=== PATIENT | male | born 1990 | race Caucasian/White ===

== ENCOUNTER 2019-01-27 07:49 | Outpatient (REF) | payer MEDICAID, SELFPAY ==
[2019-01-27 10:53] LABS: HCT 49.2 % (40.0-50.0); Mean Corp. HGB Concentration 32.5 g/dL (32.0-36.0); Mean Corpuscular Hemoglobin 29.9 pg (27.0-33.0); Mean Corpuscular Volume 91.8 fL (80-95); Mean Platelet Volume 10.5 fL (8.0-11.0); Platelet Count 245 x1000/uL (130-400); RBC 5.36 m/cumm (4.50-6.00); RBC Distribution Width 13.6 % (11.8-14.1); White Blood Cell Count 8.34 k/cumm (4.4-10.8)
[2019-01-27 12:14] LABS: Hemoglobin A1C 5.5 % (4.5-6.2)
[2019-01-27 12:45] LABS: Anion Gap 10.9 mmol/L (3-11); BUN 16 mg/dL (7-18); CO2 30.1 mmol/L (21.0-32.0); CREATININE 0.93 mg/dL (0.70-1.30); Calculated LDL 94 mg/dL; Chloride 101 mmol/L (98-107); Cholesterol 169 mg/dL (50-200); Glucose 92 mg/dL (70-100); HDL Cholesterol 60 mg/dL (40-60); Potassium 4.3 mmol/L (3.5-5.1); Sodium 142 mmol/L (136-145); Triglyceride 77 mg/dL (30-150)
[2019-01-28 10:49] LABS: Lyme Ab w Rflx to Lyme Confirm Negative
== END 2019-01-27 08:09 ==
LOC: NCHCN 07:49
PROVIDERS: PCP Nurse Practitioner Family; Visit Provider Nurse Practitioner Family
DX: Z11.8 Encounter for screening for other infectious and parasitic diseases (principal); Z13.1 Encounter for screening for diabetes mellitus; Z13.0 Encounter for screening for diseases of the blood and blood-forming organs and certain disorders involving the immune mechanism; Z13.220 Encounter for screening for lipoid disorders
CPT/HCPCS: 80048; 80061; 83721; 85027; 83036; 86618

== ENCOUNTER 2019-02-14 00:10 | Outpatient (CLI) | payer MEDICAID, SELFPAY ==
--- NOTE | 2019-02-14 08:30 | ETT_ITS ---
*[facility]* *[facility]* [address] [place] [address] Stress Electrocardiography [place] protocol Date of study: 02/14/2019 *PATIENT PRESENTATION* Height: 175.3cm (69in) Blood Pressure: Weight: 65.9kg (145lb) BSA: 1.79m^2 Ordering physician: Alfredo Gutiérrez Impressions: Normal study after maximal exercise. Summary: 1. Stress ECG conclusions: The stress ECG is negative. Treadwell treadmill score: 6. This score predicts a low risk of cardiac events. Indication: R07.89. History: REASON FOR TESTING: PATIENT TESTING TODAY FOR FURTHER RISK STRATIFICATION. PATIENT REPORTS HAVING INTERMITTENT LEFT SIDED SHARP/STABBING CHEST PAIN THAT RADIATES TO LEFT JAW AND NECK OVER THE LAST SIX MONTHS. THIS CHEST PAIN IS ASSOCIATED WITH SOB, NAUSEA, DIAPHORESIS, BLURRY VISION, AND FEELING LIKE HE WANTS TO PASS OUT; CHEST PAIN IS RELIEVED WITH REST; THIS PAIN CAN LAST FROM FIVE TO SIXTY MINUTES. PATIENT DENIES CHEST PAIN UPON ARRIVAL TO TESTING TODAY. SIGNIFICANT PAST MEDICAL HISTORY: PATIENT STATES HIS FATHER HAD A HEART ATTACK AT AGE 26 YEARS. SMOKING STATUS: CURRENT SMOKER FOR 14 YEARS. 2 PPD. Risk factors: Family history of coronary artery disease. Current tobacco use. ALLERGIES: NO KNOWN MEDICATION ALLERGIES. MEDICATIONS: ZANTAC 75 MG DAILY. Protocol: [place] protocol. Baseline ECG: SINUS RHYTHM. HR 84 BPM. Stress protocol: + +---+ + !Stage !HR !BP (mmHg) ! + +---+ + !Baseline supine !84 !130/82 (98) ! + +---+ + !Baseline standing !89 !134/82 (99) ! + +---+ + !Stage I; 1.7mph, 10degrees; 3 min !132!138/80 (99) ! + +---+ + !Stage II; 2.5mph, 12degrees; 3 min !146!144/76 (99) ! + +---+ + !Stage III; 3.4mph, 14degrees; 3 min!167!160/80 (107)! + +---+ + !Peak stress !185! ! + +---+ + !Recovery; 1 min !140!158/50 (86) ! + +---+ + !Recovery; 3 min !99 !158/70 (99) ! + +---+ + !Recovery; 6 min !95 !128/80 (96) ! + +---+ + !Recovery; 9 min !89 !118/82 (94) ! + +---+ + * Stress results: STRESS TEST ENDED IN 9 MINUTES 44 SECONDS DUE TO PATIENT FEELING LIKE HE WANTED TO PASS OUT/LIGHTHEADED. NORMAL HEART RATE AND BLOOD PRESSURE RESPONSE TO EXERCISE. MAX HEART RATE:185. 95 % OF TARGET HEART RATE ACHIEVED. MET'S: 11.34. NO ECTOPY. PATIENT FELT LIKE HE WANTED TO PASS OUT/LIGHTHEADED AT 9 MINUTES 44 SECONDS OF EXERCISE. 5/10 NON RADIATING LEFT SIDED CHEST PAIN AT 1 SECOND RECOVERY. 3/10 NON RADIATING LEFT SIDED CHEST PAIN AT 1 MINUTE 49 SECONDS OF RECOVERY. NONRADIATING LEFT SIDED CHEST PAIN FEELS LIKE NUMBNESS AT 3 MINUTES 22 SECONDS OF RECOVERY. NONRADIATING LEFT SIDED CHEST PAIN COMPLETELY GONE AT 4 MINUTES 27 SECONDS OF RECOV HECTOR, STILL HAS SLIGHT LIGHTHEADEDNESS. PATIENT STATES HE FEELS LIKE HE IS BACK TO BASELINE AT 6 MINUTES 28 SECONDS OF RECOVERY. NO ST SEGMENT CHANGES. MILDLY DIMINISHED FUNCTIONAL CAPACITY. The rate-pressure product for the peak heart rate and blood pressure was 67244ts Hg/min. Stress ECG: The stress ECG is negative. Treadwell treadmill score: 6. This score predicts a low risk of cardiac events. Study data: Abraham Lewis MD supervised and was readily available during the procedure. This study was interpreted by [facility]. Study status: Routine. Consent: The risks, benefits, and alternatives to the procedure were explained to the patient and informed consent was obtained. Procedure: Initial setup. A baseline ECG was recorded. Surface ECG leads and manual cuff blood pressure measurements were monitored. Heart sounds: Normal. Lung sounds: Normal. Treadmill exercise testing was performed using the [place] protocol. Study completion: The patient tolerated the procedure well and was discharged from the lab. Discharge: The patient left the laboratory in stable condition. Birthdate: Patient birthdate: 1990. Sex: Gender: male. Study date: Study date: 02/14/2019. Study time: 00:01 AM. Electronically signed by Abraham Lewis MD 02/14/2019 09:39
== END 2019-02-14 00:30 ==
PROVIDERS: PCP Nurse Practitioner Family; Visit Provider Nurse Practitioner Family
DX: R07.89 Other chest pain (principal); R68.84 Jaw pain
CPT/HCPCS: 93017

== ENCOUNTER 2022-10-24 15:31 | Outpatient (REF) | payer MEDICAID, SELFPAY ==
[2022-10-24 20:53] LABS: Abs Immature Grans 0.02 10^3/uL (0.0-0.06); Absolute Eosinophil Count 0.09 10^3/uL (0.0-0.7); Absolute Monocyte Count 0.48 10^3/uL (0.1-0.8); Absolute Neutrophil Count 6.81 10^3/uL (1.2-6.7); Basophils % 1.1; HCT 48.4 % (40.0-50.0); HGB 15.9 g/dL (13.5-17.5); Immature Grans % 0.2; Lymphocytes % 19.4; MCH 29.6 pg (27.0-33.0); MCHC 32.9 % (32.0-36.0); MCV 90 fL (80-95); MPV 10.7 fL (8.0-11.0); Monocytes % 5.2; Neutrophils % 73.1; Platelet Count 248 10^3/uL (130-400); RBC 5.37 10^6/uL (4.36-5.78); RDW 12.8 % (11.8-14.1); RDW-SD 42.5 fL
[2022-10-24 20:56] LABS: ESR 8 mm/hr (0-15)
[2022-10-24 21:16] LABS: ALT 21 U/L (16-63); AST 21 U/L (15-37); Albumin 5.1 g/dL (3.4-5.0); Alkaline Phosphatase 57 U/L (46-116); Anion Gap 6.5 mmol/L (3-11); BUN 19 mg/dL (7-18); Bilirubin, Total 0.7 mg/dL (0.2-1.0); C-Reactive Protein 0.34 mg/dL (0.0-0.3); CO2 32.5 mmol/L (21.0-32.0); CREATININE 1.2 mg/dL (0.70-1.30); Calcium 9.9 mg/dL (8.5-10.1); Chloride 99 mmol/L (98-107); Estimated GFR 83.43 (mL/min/1.73m2); Glucose 99 mg/dL (74-106); Sodium 138 mmol/L (136-145); TSH (W/Ref FT4) 1.99 uIU/mL (0.36-3.74); Total Protein 8.3 g/dL (6.4-8.2)
[2022-10-25 21:51] LABS: Rheumatoid Factor <8.6 IU/mL (<12.0)
[2022-10-27 10:29] LABS: Lyme Ab w Rflx to Lyme Confirm Negative (Negative)
[2022-10-27 15:10] LABS: ANA Interpretation Negative (Negative)
[2022-10-28 19:11] LABS: Anaplasma phagocytophilum Negative (Negative); B. miyamotoi PCR Negative (Negative); Babesia divergens/MO-1 Negative (Negative); Babesia duncani Negative (Negative); Babesia microti Negative (Negative); Ehrlichia chaffeensis Negative (Negative); Ehrlichia ewingii/canis Negative (Negative); Ehrlichia muris eauclairensis Negative (Negative)
== END 2022-10-24 15:32 | disposition home or self-care (01) ==
LOC: LBN 15:31
PROVIDERS: Visit Provider Physician Assistant Medical
DX: R42 Dizziness and giddiness (principal); R79.89 Other specified abnormal findings of blood chemistry; R79.82 Elevated C-reactive protein (CRP)
CPT/HCPCS: 80053; 85652; 87798; 84443; 85025; 86038; 86140; 86431; 86618

== ENCOUNTER 2022-10-27 10:18 | Outpatient (REF) | payer MEDICAID, SELFPAY | END 2022-10-27 10:19 | disposition home or self-care (01) | LOC: LBN 10:18 | PROVIDERS: Visit Provider Physician Assistant Medical | DX: R42 Dizziness and giddiness (principal); R19.5 Other fecal abnormalities | CPT/HCPCS: 87177 ==

== ENCOUNTER 2024-01-25 19:49 | Outpatient (CLI) | payer MEDICAID, SELFPAY ==
[2024-01-26 18:56] LABS: HBs Antibody, Quant 281.5 mIU/mL (See Note); Hepatitis B Surface Ab Positive (See Note)
[2024-01-26 19:37] LABS: HIV-1/2 Ag & Ab Screen Negative (Negative)
[2024-01-26 19:38] LABS: Hepatitis C Ab w Rflx HCV PCR Negative (Negative)
[2024-01-27 12:08] LABS: TB Interpretation Negative (Negative); TB1 Ag minus Nil 0.01 IU/ml
== END 2024-01-25 19:50 | disposition home or self-care (01) ==
LOC: LBO 19:50
PROVIDERS: Visit Provider Nurse Practitioner Family
DX: Z11.59 Encounter for screening for other viral diseases (principal); Z11.7 Encounter for testing for latent tuberculosis infection
CPT/HCPCS: 36415; 86706; 86803; 87389; 86480

== ENCOUNTER 2024-02-15 11:18 | Emergency (ER) | payer MEDICAID, SELFPAY ==
[2024-02-15] VITALS (55 sets, daily range): BP systolic 95–145; BP diastolic 47–99; PULSE 86–125; RESP 11–33; TEMP 36.6; O2SAT 97–100
--- NOTE | 2024-02-15 11:15 | RT.EKG_ITS ---
APPROVED REPORT Exam: Resting ECG Reason for Exam: overdose Patient Location: E HR:112 bpm ECG Measurements Heart Rate 112 AXIS AR 116 P 84 QRSd 77 QRS 86 QT 324 T -29 QTc 443 Conclusion Sinus tachycardia...rate> 99
[2024-02-15 11:49] LABS: Abs Immature Grans 0.06 10^3/uL (0.0-0.06); Absolute Monocyte Count 0.73 10^3/uL (0.1-0.8); Basophils % 0.6 %; Eosinophils % 0.8 %; HCT 52.5 % (40.0-50.0); HGB 17.2 g/dL (13.5-17.5); Immature Grans % 0.3 %; Lymphocytes % 12.4 %; MCH 29.5 pg (27.0-33.0); MCHC 32.8 % (32.0-36.0); MCV 90 fL (80-95); MPV 9.3 fL (8.0-11.0); Monocytes % 4.2 %; Neutrophils % 81.7 %; Platelet Count 304 10^3/uL (130-400); RBC 5.83 10^6/uL (4.36-5.78); RDW-SD 46.3 fL; WBC 17.31 10^3/uL (4.4-10.8)
[2024-02-15 11:50] LABS: Absolute Eosinophil Count 0.14 10^3/uL (0.0-0.7); Absolute Lymphocyte Count 2.15 10^3/uL (1.2-3.4); Absolute Neutrophil Count 14.14 10^3/uL (1.2-6.7)
--- NOTE | 2024-02-15 11:56 | W.ED.GENAD ---
Discharge Plan Discharge Details Chief Complaint: PsychEval Primary Care Provider: Unknown,Unknown ED Provider: Susannah Stephens Home Meds and New Rx's Prescriptions: No Action lorazepam [Ativan] 0.5 mg tablet 0.5 mg PO Q6H PRN hydroxyzine HCl 25 mg tablet 25 mg PO TID PRN HPI General Mode of arrival: ambulatory. Date/Time Provider Initiated Documentation: 02/15/24 11:30. Limitations to Documentation: no limitations. Information obtained by: patient, RN notes reviewed and old records reviewed. HPI Narrative: 33-year-old male presents to the ER complaining of suicidal attempt by overdose. Patient reports over the last few days he has been taking multiple tablets of Benadryl and hydroxyzine along with lorazepam. Patient reports at least 5 tablets or more of Benadryl daily. He also reports some nausea vomiting which began today and some abdominal irritation. He is alert and oriented nonirritated or agitated upon initial presentation he is tachycardic with a rate of 116. He reports he has not eaten in many days. He is stating that he is suicidal and wants to kill himself. He also endorses alcohol. Denies any other substances he reports that he ran out of weed. Denies any recent falls or any other associated symptoms. Related Data Home Medications ?Medication ?Instructions ?Recorded ?Confirmed hydroxyzine HCl 25 mg tablet 25 mg PO TID PRN 02/15/24 02/15/24 lorazepam 0.5 mg tablet (Ativan) 0.5 mg PO Q6H PRN 02/15/24 02/15/24 Allergies Allergy/AdvReac Type Severity Reaction Status Date / Time No Known Allergies Allergy Unverified 02/15/24 11:54 General Stated Complaint: PsychEval STEPHANY: 2 Review of Systems All systems reviewed & are unremarkable except as noted in HPI and below Gastrointestinal Gastrointestinal: Reports abdominal pain, Reports nausea and Reports vomiting Psychiatric Psychiatric: Reports depression, Reports hopelessness and Reports suicidal ideation Exam Narrative Exam Narrative: Constitutional: Alert and oriented x3. Appears stated age. Normal body habitus. Head: Normocephalic, no trauma. Eyes: Pupils PERRL, Red reflex noted, EOM's intact. Eyelids symmetrical without lesions, discharge, or swelling. ENT: Bilateral TM's WNL, External ear normal to inspection, no mastoid TTP, swelling, or erythema, Nasal turbinates WNL, no nasal discharge. Normal dentition, Posterior pharynx WNL, no exudate. Chest: Sinus tachycardia, rate of 118, normal S1, S2, distal pulses intact. Resp: Lungs clear to auscultation bilaterally, no wheezes, rales, or rhonchi. Abdomen: Soft, non-distended, Normoactive bowel sounds all 4 quads. Musculoskeletal: Normal gait, Moves all 4 extremities without difficulty. Skin: No suspicious rashes or lesions. Capillary refill less than 2 sec. Neurologic: Cranial nerves II-XII intact. Alert and oriented x 3. Motor: No deficits noted. Sensory: Intact bilaterally all 4 extremities. Hematologic/Lymphatic: No ecchymosis, no lymphadenopathy. Course Vital Signs Vital signs: Vital Signs Temperature 36.6 C 02/15/24 11:22 Pulse 116 H 02/15/24 11:22 Respiratory Rate 16 02/15/24 11:22 Blood Pressure 98/75 L 02/15/24 11:22 Pulse Oximetry 100 02/15/24 11:22 Temperature 36.6 C 02/15/24 11:22 Pulse 116 H 02/15/24 11:22 Respiratory Rate 16 02/15/24 11:22 Respiratory Effort Normal, Non-Labored 02/15/24 11:39 Blood Pressure 98/75 L 02/15/24 11:22 Pulse Oximetry 100 02/15/24 11:22 Lab/Test Results Lab/Test Results: Laboratory Tests Range/Units 02/15/24 11:35 WBC (4.4-10.8) 10^3/uL 17.31 H RBC (4.36-5.78) 10^6/uL 5.83 H Hgb (13.5-17.5) g/dL 17.2 Hct (40.0-50.0) % 52.5 H MCV (80-95) fL 90 MCH (27.0-33.0) pg 29.5 MCHC (32.0-36.0) % 32.8 RDW (11.8-14.1) % 14.0 Plt Count (130-400) 10^3/uL 304 MPV (8.0-11.0) fL 9.3 Immature Gran % % 0.3 Neutrophils % % 81.7 Lymphocytes % % 12.4 Monocytes % % 4.2 Eosinophils % % 0.8 Basophils % % 0.6 Nucleated RBC % (0.0-0.3) % 0.0 Absolute Neutrophils (1.2-6.7) 10^3/uL 14.14 H Absolute Lymphocytes (1.2-3.4) 10^3/uL 2.15 Absolute Monocytes (0.1-0.8) 10^3/uL 0.73 Absolute Eosinophils (0.0-0.7) 10^3/uL 0.14 Absolute Basophils (0.0-0.2) 10^3/uL 0.10 Medical Decision Making 33-year-old male presents to the ER complaining of suicidal attempt by overdose. Patient reports over the last few days he has been taking multiple tablets of Benadryl and hydroxyzine along with lorazepam. Patient reports at least 5 tablets or more of Benadryl daily. He also reports some nausea vomiting which began today and some abdominal irritation. He is alert and oriented nonirritated or agitated upon initial presentation he is tachycardic with a rate of 116. He reports he has not eaten in many days. He is stating that he is suicidal and wants to kill himself. He also endorses alcohol. Denies any other substances he reports that he ran out of weed. Denies any recent falls or any other associated symptoms. Workup ordered including CBC CMP Tylenol salicylate level left ethyl alcohol level, urine drug screen, urinalysis, CK magnesium. Liter of normal saline given. Mental health and behavioral health care plan ordered. EKG was reviewed by Dr. Ha ER attending, no old EKG available for review. Please see official report. Initial labs show some leukocytosis white blood cell count 7.31, absolute neutrophils 14.14 magnesium slightly low at 1.7, ethyl alcohol level 37.1. Poison control called by licensed staff mft they expect sleepiness tachycardia and sweating patient at risk for QR changes, they recommend observe ovation for approximately 4 to 6 hours to rule out coingestions and a metabolic panel. Report if agitation occurs may treat with benzodiazepines. 1509: Spoke with Jennifer with Poison control who recommends repeat salicylate level since it was reading at 4.0 to confirm it is not continuing to elevate. Awaiting UDS and mental health eval. Care is to be handed off to oncomig provider Shelli DARDEN, pending Mental health eval. Repeat Salicylate is down trending. This text was generated using Verified Identity Passation system, please disregard any oddities of phrase or misspellings. Lab Data Lab results reviewed: Yes I reviewed the patient's lab results. Labs: Laboratory Tests Range/Units 02/15/24 02/15/24 02/15/24 11:35 14:28 14:32 WBC (4.4-10.8) 10^3/uL 17.31 H RBC (4.36-5.78) 10^6/uL 5.83 H Hgb (13.5-17.5) g/dL 17.2 Hct (40.0-50.0) % 52.5 H MCV (80-95) fL 90 MCH (27.0-33.0) pg 29.5 MCHC (32.0-36.0) % 32.8 RDW (11.8-14.1) % 14.0 Plt Count (130-400) 10^3/uL 304 MPV (8.0-11.0) fL 9.3 Immature Gran % % 0.3 Neutrophils % % 81.7 Lymphocytes % % 12.4 Monocytes % % 4.2 Eosinophils % % 0.8 Basophils % % 0.6 Nucleated RBC % (0.0-0.3) % 0.0 Absolute Neutrophils (1.2-6.7) 10^3/uL 14.14 H Absolute Lymphocytes (1.2-3.4) 10^3/uL 2.15 Absolute Monocytes (0.1-0.8) 10^3/uL 0.73 Absolute Eosinophils (0.0-0.7) 10^3/uL 0.14 Absolute Basophils (0.0-0.2) 10^3/uL 0.10 Sodium (136-145) mmol/L 141 Potassium (3.5-5.1) mmol/L 4.2 Chloride (98-107) mmol/L 100 Carbon Dioxide (21.0-32.0) mmol/L 32.1 H Anion Gap (3-11) mmol/L 8.9 BUN (7-18) mg/dL 8 Creatinine (0.70-1.30) mg/dL 0.9 Est GFR (CKD-EPI 2020) (mL/min/1.73m2) 117.10 Glucose (74-106) mg/dL 99 Calcium (8.5-10.1) mg/dL 9.9 Magnesium (1.8-2.4) mg/dL 1.7 L Total Bilirubin (0.2-1.0) mg/dL 0.34 AST (15-37) U/L 23 ALT (16-63) U/L 22 Alkaline Phosphatase (46-116) U/L 75 Creatine Kinase (39-308) U/L 98 Troponin I (< or =60) ng/L < 50 Cancelled Total Protein (6.4-8.2) g/dL 8.9 H Albumin (3.4-5.0) g/dL 4.9 Urine Color (Yellow) Yellow Urine Clarity (Clear) Clear Urine pH (5-8) 8.5 H Ur Specific Sparks (1.005-1.025) 1.020 Urine Protein (Neg-Trace) mg/dL 30 H Urine Ketones (Negative) mg/dL Negative Urine Blood (Negative) Negative Urine Nitrite (Negative) Negative Urine Bilirubin (Negative) Negative Urine Urobilinogen (Up to 0.2) mg/dL 0.2 Ur Leukocyte Esterase (Negative) Negative Urine RBC (0-2) HPF Negative Urine WBC (0-5) HPF Negative Ur Epithelial Cells (Negative) HPF Rare Urine Crystals (Negative) HPF Negative Urine Bacteria (Negative) HPF Negative Urine Casts (Negative) LPF 0-2 Hyaline Urine Mucus (Negative) Trace Ur Culture Indicated? No Urine Glucose (Negative) mg/dL Negative Salicylates (<2.8) mg/dL 4.0 Urine Opiates Screen (Negative) Negative Acetaminophen (10-30) ug/mL < 2 Ur Barbiturates Screen (Negative) Negative Ur Tricyclics Screen (Negative) Negative Ur Amphetamines Screen (Negative) Negative U Benzodiazepines Scrn (Negative) Positive A Urine Cocaine Screen (Negative) Negative Ur THC Screen (Negative) Positive A Ethyl Alcohol (<10) mg/dL 37.1 H Range/Units 02/15/24 15:43 WBC (4.4-10.8) 10^3/uL RBC (4.36-5.78) 10^6/uL Hgb (13.5-17.5) g/dL Hct (40.0-50.0) % MCV (80-95) fL MCH (27.0-33.0) pg MCHC (32.0-36.0) % RDW (11.8-14.1) % Plt Count (130-400) 10^3/uL MPV (8.0-11.0) fL Immature Gran % % Neutrophils % % Lymphocytes % % Monocytes % % Eosinophils % % Basophils % % Nucleated RBC % (0.0-0.3) % Absolute Neutrophils (1.2-6.7) 10^3/uL Absolute Lymphocytes (1.2-3.4) 10^3/uL Absolute Monocytes (0.1-0.8) 10^3/uL Absolute Eosinophils (0.0-0.7) 10^3/uL Absolute Basophils (0.0-0.2) 10^3/uL Sodium (136-145) mmol/L Potassium (3.5-5.1) mmol/L Chloride (98-107) mmol/L Carbon Dioxide (21.0-32.0) mmol/L Anion Gap (3-11) mmol/L BUN (7-18) mg/dL Creatinine (0.70-1.30) mg/dL Est GFR (CKD-EPI 2020) (mL/min/1.73m2) Glucose (74-106) mg/dL Calcium (8.5-10.1) mg/dL Magnesium (1.8-2.4) mg/dL Total Bilirubin (0.2-1.0) mg/dL AST (15-37) U/L ALT (16-63) U/L Alkaline Phosphatase (46-116) U/L Creatine Kinase (39-308) U/L Troponin I (< or =60) ng/L Total Protein (6.4-8.2) g/dL Albumin (3.4-5.0) g/dL Urine Color (Yellow) Urine Clarity (Clear) Urine pH (5-8) Ur Specific Sparks (1.005-1.025) Urine Protein (Neg-Trace) mg/dL Urine Ketones (Negative) mg/dL Urine Blood (Negative) Urine Nitrite (Negative) Urine Bilirubin (Negative) Urine Urobilinogen (Up to 0.2) mg/dL Ur Leukocyte Esterase (Negative) Urine RBC (0-2) HPF Urine WBC (0-5) HPF Ur Epithelial Cells (Negative) HPF Urine Crystals (Negative) HPF Urine Bacteria (Negative) HPF Urine Casts (Negative) LPF Urine Mucus (Negative) Ur Culture Indicated? Urine Glucose (Negative) mg/dL Salicylates (<2.8) mg/dL < 2.8 Urine Opiates Screen (Negative) Acetaminophen (10-30) ug/mL Ur Barbiturates Screen (Negative) Ur Tricyclics Screen (Negative) Ur Amphetamines Screen (Negative) U Benzodiazepines Scrn (Negative) Urine Cocaine Screen (Negative) Ur THC Screen (Negative) Ethyl Alcohol (<10) mg/dL Quality:SDOH Health Related Social Needs: No Data to Display [facility]LY [facility] Social History Smoking/Tobacco Use Status: Current every day Tobacco Type: cigarettes Smoking risk assessment performed?: Yes Alcohol Intake: current Alcohol Intake frequency: holidays/special occasions only Drug use: Occasionally Substance use type: marijuana Housing: other Do you feel safe at home: Yes Do you feel safe in your relationship?: Yes Sign Out Sign Out Data: Sign Out Comment: Overdose and Suicidal attempt. Awaiting Mental Health eval. Has taken multiple Benadryl and Hydroxyzine tablets and lorazepam along with Alcohol over last few days. States I was trying to kill myself. Medically cleared, c/o nausea and stomach upset. Poison control aware. Recommended 4-6 hours observation. Last updated by Susannah Stephens NP at 02/15/24 16:31 PAWSS Have you Been Recently Intoxicated or Drunk Within the Last 30 days?: No Have you Ever Experienced Previous Episodes of Alcohol Withdrawal?: No Have you ever Experienced Withdrawal Seizures?: No Have you ever Experienced Delirium Tremens(DT)s?: No Have you ever undergone Alcohol Rehabilitation Treatment (i.e, inpt ot outpatient treatment programs)?: No Have you ever Experienced Blackouts?: No Have you ever Combined Alcohol with other Downers within the last 90 days?: No Have you ever Combined Alcohol with any other Substance of Abuse during the last 90 days?: No Positive Blood Alcohol level on Presentation? [PCS.BAL]: No Evidence of Increased Autonomic Activity (i.e. HR>120, tremor, sweating, agitation, nausea)?: No Result: 0
[2024-02-15] MEDS: Normal Saline 1,000 ML 1000 ML IV ×2 (12:02→14:45)
[2024-02-15 12:05] LABS: ALT 22 U/L (16-63); AST 23 U/L (15-37); Albumin 4.9 g/dL (3.4-5.0); Alkaline Phosphatase 75 U/L (46-116); Anion Gap 8.9 mmol/L (3-11); BUN 8 mg/dL (7-18); Bilirubin, Total 0.34 mg/dL (0.2-1.0); CO2 32.1 mmol/L (21.0-32.0); CREATININE 0.9 mg/dL (0.70-1.30); Calcium 9.9 mg/dL (8.5-10.1); Chloride 100 mmol/L (98-107); Glucose 99 mg/dL (74-106); Magnesium 1.7 mg/dL (1.8-2.4); Potassium 4.2 mmol/L (3.5-5.1); Sodium 141 mmol/L (136-145); Total Protein 8.9 g/dL (6.4-8.2); Troponin I < 50 ng/L (< or =60)
[2024-02-15 12:16] LABS: Creatine Kinase 98 U/L (39-308); ETHANOL BLOOD 37.1 mg/dL (<10)
[2024-02-15 12:19] LABS: Acetaminophen < 2 ug/mL (10-30)
[2024-02-15] MEDS: Ondansetron 4 MG/2 ML VIAL IVP (13:30)
[2024-02-15 14:43] LABS: Bilirubin Negative (Negative); Blood Negative (Negative); Clarity Clear (Clear); Glucose Negative (Negative); Ketones Negative (Negative); Leukocyte Esterase Negative (Negative); Nitrite Negative (Negative); Urobilinogen 0.2 mg/dL (Up to 0.2); pH 8.5 (5-8)
[2024-02-15 15:15] LABS: *BENZODIAZEPINES SCREEN URINE Positive (Negative); Cocaine Screen,Urine Negative (Negative)
[2024-02-15 15:16] LABS: *AMPHETAMINES SCREEN URINE Negative (Negative); *BARBITURATES SCREEN URINE Negative (Negative); Cannabinoids THC Positive (Negative); OPIATES URINE SCREEN Negative (Negative); Tricyclic Antidepressants Negative (Negative)
[2024-02-15 15:17] LABS: Bacteria Negative HPF (Negative); C & S Indicated? No; Casts 0-2 Hyaline LPF (Negative); Crystals Negative HPF (Negative); Epithelial Cells Rare HPF (Negative); Mucus Trace (Negative); RBC Negative HPF (0-2); WBC Negative HPF (0-5)
[2024-02-15 16:12] LABS: Salicylate < 2.8 mg/dL (<2.8)
--- NOTE | 2024-02-15 17:59 | CMSP_ITS ---
Date of service: 02/15/24 Time of Service: 17:59 Care Management Safety Plan Status Status: Voluntary Reason for Wait Reason for Wait: Inpatient Admission Safety Plan Safety Plan: VOLUNTARY FOR INPATIENT PSYCHIATRIC STABILIZATION.? Patient is appropriate in all interactions since arriving at [facility]; Pt has demonstrated appropriate coping and communication skills, has articulated his or her needs and concerns and is fully engaged during staff interactions. Safety plan has been established with patient, and care team, to adhere to patient goals, identify restrictions based on behavioral status, address nutrition, and determine allowed personal belongings, tools for hygiene and personal care. Determine level of activity including ambulation, level of superv ision, visitors, and determine privileges based on behaviors and level of engagement by pt. VOLUNTARY SAFETY PLAN: 1. Will remain on suicide precautions, in paper clothes 2. Will remain in Zone B under direct supervision of one-on-one staff at all times provided by [employer]; SELVIN, CHIEF ULTRASOUND TECHNOLOGIST [place]. senator. 3. May have paper cups, plates, finger foods as well as a cardboard spoon with which to eat meals. 4. Follow [facility] Management of the Admitted Behavioral Health Patient policy. 5. Shower available in Zone B without restriction. 6. Personal belongings-soft items permitted at RN discretion. 7. Visitors- at RN discretion. 8. Activities: soft cart items approved per RN discretion. 9.? Bathroom available in Zone B without restriction. 10. Phone: limited to [facility] cordless phone at RN discretion. Due to VOLUNTARY status, if patient wishes to leave [facility], staff will contact [facility] Crisis Screener ([phone]) and [employer] Web Developer ([phone]) as soon as possible. In the event of elopement, notify [facility] Police ([phone]). Patient is currently voluntarily at [facility] and seeking inpatient admission when a bed becomes available. [facility] Frontline [place] Regulator will continue seeking p lacement. Please contact the [employer] Web Developer ([phone]) and [facility] Bessemer Regulator ([phone]) for any needed changes in the Safety Plan. Safety plan has been provided to interdepartmental care team.
--- NOTE | 2024-02-15 17:59 | PDOC.CMSAFE ---
Date of service: 02/15/24 Time of Service: 17:59 Care Management Safety Plan Status Status: Voluntary Reason for Wait Reason for Wait: Inpatient Admission Safety Plan Safety Plan: VOLUNTARY FOR INPATIENT PSYCHIATRIC STABILIZATION.? Patient is appropriate in all interactions since arriving at [facility]; Pt has demonstrated appropriate coping and communication skills, has articulated his or her needs and concerns and is fully engaged during staff interactions. Safety plan has been established with patient, and care team, to adhere to patient goals, identify restrictions based on behavioral status, address nutrition, and determine allowed personal belongings, tools for hygiene and personal care. Determine level of activity including ambulation, level of supervision, visitors, and determine privileges based on behaviors and level of engagement by pt. VOLUNTARY SAFETY PLAN: 1. Will remain on suicide precautions, in paper clothes 2. Will remain in Zone B under direct supervision of one-on-one staff at all times provided by [employer]; SELVIN, COAT REPAIR INSPECTOR director enterprise sales. 3. May have paper cups, plates, finger foods as well as a cardboard spoon with which to eat meals. 4. Follow [facility] Management of the Admitted Behavioral Health Patient policy. 5. Shower available in Zone B without restriction. 6. Personal belongings-soft items permitted at RN discretion. 7. Visitors- at RN discretion. 8. Activities: soft cart items approved per RN discretion. 9.? Bathroom available in Zone B without restriction. 10. Phone: limited to [facility] cordless phone at RN discretion. Due to VOLUNTARY status, if patient wishes to leave [facility], staff will contact [facility] Crisis Screener ([phone]) and [employer] Tech/Draftsman ([phone]) as soon as possible. In the event of elopement, notify [facility] Police ([phone]). Patient is currently voluntarily at [facility] and seeking inpatient admission when a bed becomes available. [facility] Frontline Commissioned Police Officer will continue seeking placement. Please contact the Orthophoto Tech/Draftsman ([phone]) and [facility] Commissioned Police Officer ([phone]) for any needed changes in the Safety Plan. Safety plan has been provided to interdepartmental care team.
--- NOTE | 2024-02-15 21:07 | NUR.NOTE ---
Nursing Note: poison control given update, the pt is going to be seen for possible inpt admission to have further psych care
--- NOTE | 2024-02-15 23:39 | W.EDPROG ---
Date of service: 02/15/24 Time of Service: 23:39 Medical Decision Making This patient was signed out to me. Please see previous notes for H&P and initial eval. In brief, 33yo M presenting voluntary wtih SI, medically cleared, pending placement. Likely meets involuntary criteria should he wish to leave. Overnight appeared to be sleeping. Did not wake for assessment. Will be signed out to oncoming physician, plan remains as above. Quality:SDOH Health Related Social Needs: No Data to Display Sign Out Sign Out Data: Sign Out Comment: Overdose and Suicidal attempt. Awaiting Mental Health eval. Has taken multiple Benadryl and Hydroxyzine tablets and lorazepam along with Alcohol over last few days. States I was trying to kill myself. Medically cleared, c/o nausea and stomach upset. Poison control aware. Recommended 4-6 hours observation. Last updated by Susannah Stephens NP at 02/15/24 16:31 Sign Out Comment: SI with attempt pending placement, voluntary status medically cleared Last updated by Tonya Buckner PA at 02/15/24 23:39 Discharge Plan Discharge Details Chief Complaint: PsychEval Primary Care Provider: Unknown,Unknown ED Provider: Henna Casillas Home Meds and New Rx's Prescriptions: No Action lorazepam [Ativan] 0.5 mg tablet 0.5 mg PO Q6H PRN hydroxyzine HCl 25 mg tablet 25 mg PO TID PRN
--- NOTE | 2024-02-16 07:37 | W.EDPROG ---
Date of service: 02/16/24 Time of Service: 14:30 Medical Decision Making Care assumed from outgoing provider. Patient presented with SI, plan to OD has been medically cleared and is pending reassessment by mental health services. 1130 evaluated by [facility] today. no change in plan, continues to desire voluntary placement. Referrals will be sent. 1415 Accepted by [facility]. Doc to doc completed. A COVID swab has been requested by them Quality:SDOH Health Related Social Needs: No Data to Display Sign Out Sign Out Data: Sign Out Comment: Overdose and Suicidal attempt. Awaiting Mental Health eval. Has taken multiple Benadryl and Hydroxyzine tablets and lorazepam along with Alcohol over last few days. States I was trying to kill myself. Medically cleared, c/o nausea and stomach upset. Poison control aware. Recommended 4-6 hours observation. Last updated by Susannah Stephens NP at 02/15/24 16:31 Sign Out Comment: SI with attempt pending placement, voluntary status medically cleared Last updated by Tonya Buckner PA at 02/15/24 23:39 Sign Out Comment: SI, voluntary, medically cleared s/p OD on benadyrl/lorazapam/ETOH. Pending placement. Likely meets involuntary criteria should he chose to leave. Last updated by Henna Casillas MD at 02/16/24 07:38 Discharge Plan Discharge Details Chief Complaint: PsychEval Primary Care Provider: Unknown,Unknown ED Provider: Rosalie Chowdary Home Meds and New Rx's Prescriptions: No Action lorazepam [Ativan] 0.5 mg tablet 0.5 mg PO Q6H PRN hydroxyzine HCl 25 mg tablet 25 mg PO TID PRN
--- NOTE | 2024-02-16 08:49 | CMSP_ITS ---
Date of service: 02/16/24 Time of Service: 08:49 Care Management Safety Plan Status Status: Voluntary Reason for Wait Reason for Wait: Inpatient Admission (Awaiting discharge to an accepting inpatient psych facility.) Safety Plan Safety Plan: VOLUNTARY FOR INPATIENT PSYCHIATRIC STABILIZATION.? Patient is appropriate in all interactions since arriving at [facility]; Pt has demonstrated appropriate coping and communication skills, has articulated his or her needs and concerns and is fully engaged during staff interactions. Safety plan has been established with patient, and care team, to adhere to patient goals, identify restrictions based on behavioral status, address nutrition, and determine allowed personal belongings, tools for hygiene and personal care. Determine level of activity including ambulation, level of supervision, visitors, and determine privileges based on behaviors and level of engagement by pt. VOLUNTARY SAFETY PLAN: 1. Will remain on suicide precautions, in paper clothes 2. 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 3. May have paper cups, plates, finger foods as well as a cardboard spoon with which to eat meals. 4. Follow [facility] Management of the Admitted Behavioral Health Patient policy. 5. Shower available in Zone B without restriction. 6. Personal belongings-soft items permitted at RN discretion. 7. Visitors- at RN discretion. 8. Activities: soft cart items approved per RN discretion. 9.? Bathroom available in Zone B without restriction. 10. Phone: limited to [facility] cordless phone at RN discretion. Due to VOLUNTARY status, if patient wishes to leave [facility], staff will contact [facility] Crisis Screener ([phone]) and [facility] ([phone]) as soon as possible. In the event of elopement, notify [facility] Police ([phone]). Patient is currently voluntarily at [facility] and seeking inpatient admission when a bed becomes available. [facility] [employer] will continue seeking placement. Please contact the Sh[facility]ler ([phone]) and [facility] Optical Model [employer] Tester ([phone]) for any needed changes in the Safety Plan. Safety plan has been provided to interdepartmental care team.
[2024-02-16 09:48] VITALS: BP 121/79; PULSE 84; RESP 18; TEMP 37; O2SAT 97
[2024-02-16] MEDS: Nicotine 2 MG LOZG SUC (11:40)
[2024-02-16 15:20] LABS: COVID-19 PCR Negative (Negative); Influenza A PCR Negative (Negative); Influenza B PCR Negative (Negative); RSV PCR Negative (Negative)
[2024-02-16 15:21] LABS: Source Nasopharynx
--- NOTE | 2024-02-16 16:38 | NUR.NOTE ---
nurse to nurse given to Mar from [place] at 1625. we will set up transport as long as he gets there by [id number]. will give them a call when he leaves Nursing Note:
--- NOTE | 2024-02-16 16:54 | W.EDPROG ---
Date of service: 02/16/24 Time of Service: 16:54 Medical Decision Making I received signout on this 33-year-old patient in the emergency department voluntarily in setting of suicidal ideation. Patient has reportedly been accepted to the [facility]. No active behavioral issues last shift. Will update documentation as clinically warranted. 5:17 PM I signed transfer paperwork to have the patient transferred to [facility]. Doc to doc completed on prior shift. Accepting physician was Dr. Purvis. Quality:[facility] Health Related Social Needs: No Data to Display Sign Out Sign Out Data: Sign Out Comment: Overdose and Suicidal attempt. Awaiting Mental Health eval. Has taken multiple Benadryl and Hydroxyzine tablets and lorazepam along with Alcohol over last few days. States I was trying to kill myself. Medically cleared, c/o nausea and stomach upset. Poison control aware. Recommended 4-6 hours observation. Last updated by Susannah Stephens NP at 02/15/24 16:31 Sign Out Comment: SI with attempt pending placement, voluntary status medically cleared Last updated by Tonya Buckner PA at 02/15/24 23:39 Sign Out Comment: SI, voluntary, medically cleared s/p OD on benadyrl/lorazapam/ETOH. Pending placement. Likely meets involuntary criteria should he chose to leave. Last updated by Henna Casillas MD at 02/16/24 07:38 Sign Out Comment: placed at [facility], pending transport Last updated by Rosalie Chowdary MD at 02/16/24 16:41 Discharge Plan Discharge Details Chief Complaint: PsychEval Primary Care Provider: Unknown,Unknown ED Provider: Jun Sheth Home Meds and New Rx's Prescriptions: No Action lorazepam [Ativan] 0.5 mg tablet 0.5 mg PO Q6H PRN hydroxyzine HCl 25 mg tablet 25 mg PO TID PRN Discharge Data Discharge Date/Time-TO BE ENTERED AT DEPARTURE: 02/16/24 16:46
== END 2024-02-16 16:46 ==
PROVIDERS: Emergency Medicine; Registered Nurse Emergency; Emergency Provider Emergency Medicine
DX: T45.0X2A Poisoning by antiallergic and antiemetic drugs, intentional self-harm, initial encounter (principal); T42.4X2A Poisoning by benzodiazepines, intentional self-harm, initial encounter; F10.90 Alcohol use, unspecified, uncomplicated; R11.2 Nausea with vomiting, unspecified
CPT/HCPCS: 00123; 80053; 80307; 82550; 87637; 93005; 96361; 96374; 99285; 80320; 80329; 81003; 81015; 83735; 84484; 85025; 93010; J2405